=== PATIENT | male | born 1940 | race Caucasian/White ===

== ENCOUNTER 2021-05-31 18:46 | Emergency (ER) | payer MEDICARE, OTHER ==
[2021-05-31] MEDS ORDERED: LIDOCAINE-EPINEPH-TETRACAINE 3 ML SYRINGE TOP STA (19:14)
--- NOTE | 2021-05-31 19:19 | ED Physician Documentation ---
History of Present Illness - Stated complaint Stated Complaint: GLF - Chief complaint Chief Complaint: Trauma Hd/Nk - History obtained from History obtained from: Patient, Family - History of Present Illness Timing: Today Pain level max: 3 Pain level now: 3 - Additonal information Additional information: Patient is an 80-year-old male [place]pped and fell causing a laceration to the left eyebrow. Nothing makes it better or worse. Denies any neck pain. States he has mild back "tightness. No numbness or tingling. Worse with movement, better with rest. He is on aspirin daily. No other blood thinners. Review of Systems Ten Systems: 10 systems reviewed and negative Constitutional: denies: Fever, Chills Ears: denies: Ear pain Nose: denies: Rhinorrhea / runny nose, Congestion GI: denies: Vomiting Skin: denies: Rash Musculoskeletal: reports: Back pain (Patient states that he feels like his back is "tightening up". Mild in nature. No numbness or tingling.). denies: Neck pain Neurologic: denies: Focal weakness, Numbness, Confused, LOC PD PAST MEDICAL HISTORY - Past Medical History Past Medical History: Yes - Present Medications Home Medications: Ambulatory Orders Medication Instructions Recorded Confirmed Aspirin [[place] Aspirin] 81 mg PO DAILY 05/31/21 05/31/21 Atorvastatin [Lipitor] 10 mg PO DAILY 05/31/21 05/31/21 Finasteride [Proscar] 5 mg PO DAILY 05/31/21 05/31/21 Gabapentin [Gralise] 900 mg PO QPM 05/31/21 05/31/21 Montelukast Sodium 5 mg PO DAILY 05/31/21 05/31/21 dilTIAZem HCL [Diltiazem 24Hr ER 240 mg PO DAILY 05/31/21 05/31/21 (Xr)] - Allergies Allergies/Adverse Reactions: Allergies Allergy/AdvReac Type Severity Reaction Status Date / Time tetracycline AdvReac Edema Verified 05/31/21 18:55 PD ED PE NORMAL - Vitals Vital signs reviewed: Yes - General General: Alert and oriented X 3, No acute distress - HEENT HEENT: PERRL, EOMI, Moist mucous membranes, Other (L eyebrow laceration. no sc alp hematomas) - Neck Neck: Supple, no meningeal sign, No bony TTP - Cardiac Cardiac: RRR, Strong equal pulses - Respiratory Respiratory: No respiratory distress, Clear bilaterally - Abdomen Abdomen: Soft, Non tender, Non distended - Back Back: No spinal TTP - Derm Derm: Warm and dry - Extremities Extremities: No edema - Neuro Neuro: Alert and oriented X 3, locomotive engineer 2-12 intact, No motor deficit, No sensory deficit, Normal speech Eye Opening: Spontaneous Motor: Obeys Commands Verbal: Oriented GCS Score: 15 - Psych Psych: Normal mood, Normal affect Results - Vitals Vitals: Vital Signs - 24 hr 05/31/21 05/31/21 05/31/21 18:50 20:11 20:44 Temperature 36.2 C L 36.5 C Heart Rate 75 74 74 Respiratory 18 16 16 Rate Blood Pressure 154/72 H 154/91 H 150/90 H O2 Saturation 97 97 99 Oxygen O2 Source Room air - Rads (name of study) head Ct Radiology: Final report received, EMP read contemporaneously, See rad report (No acute abnormality) cervical spine CT Radiology: Final report received, EMP read contemporaneously, See rad report (Left-sided lymphadenopathy. No acute abnormality) Procedures - Laceration (location) Left eyebrow laceration Length in cm: 3 Wound type: Linear, Into subcut fat Neurovascular status: Sensory intact, Motor intact, Vascular intact Anesthesia: LET, Lidocaine 1% with epi Wound preparation: Irrigated copiously NS, Wound explored, To the base. No: FB identified Skin layer closure: Nylon, Interrupted, Size #-0 - enter number (4), Sutures - enter # (5) Other: Patient tolerated well, No complications, Neurovascular intact, Dressing applied, Tetanus UTD PD MEDICAL DECISION MAKING - ED course Complexity details: reviewed results, re-evaluated patient, considered differential, d/w patient, d/w family ED course: Laceration repaired. Tolerated well. No acute findings on head CT or cervical spine CT. 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 Warnings of infection and instructions on wound care given at bedside. Also counseled on how to minimize scarring. Patient counseled regarding signs and symptoms for which I believe and urgent re-evaluation would be necessary. Patient with good understanding of and agreement to plan and is comfortable going home at this time This document was made in part using voice recognition software. While efforts are made to proofread this document, sound alike and grammatical errors may occur. Departure - Departure Disposition: 01 Home, Self Care Clinical Impression: Lymphadenopathy of head and neck Laceration of eyebrow Qualifiers: Encounter type: initial encounter Laterality: left Qualified Code(s): S01.112A - Laceration without foreign body of left eyelid and periocular area, initial encounter Closed head injury Qualifiers: Encounter type: initial encounter Qualified Code(s): S09.90XA - Unspecified injury of head, initial encounter Condition: Good Instructions: ED Laceration Facial Sutr Tape Follow-Up: DESHAWN AGUILERA MD [Primary Care Provider] - Comments: Follow-up with your doctor in about 7 days for suture removal. You can also return here for suture removal. Return if you worsen. Keep the wounds clean. Your head CT does not show any acute abnormalities tonight. You do have lymphadenopathy on the left side of your neck. Unclear etiology. This should be followed up with your doctor. They will likely want to perform blood work and an ultrasound of this area. IMPRESSION: 1. No acute cervical spine fracture or dislocation. 2. Degenerative disc disease throughout cervical spine as above. 3. Extensive left neck soft tissue lymphadenopathy extending to left supraclavicular region and is of indeterminate etiology, suggest clinical correlation. Discharge Date/Time: 05/31/21 20:46
--- NOTE | 2021-05-31 20:21 | CT Report ---
PROCEDURE: CERVICAL SPINE WO INDICATIONS: fall, neck injury TECHNIQUE: Noncontrast 3 mm thick sections acquired from the skull base to the T4 level. Sagittal and coronal r eformats were then constructed. For radiation dose reduction, the following was used: automated exp osure control, adjustment of mA and/or kV according to patient size. COMPARISON: None. FINDINGS: Image quality: Excellent. Bones: No fractures or dislocations. Osteoarthritic changes are noted involving dens and anterior ar ch of C1. Degenerative endplate changes and decreased intervertebral disc space with bilateral facet hypertrophic changes are noted throughout cervical spine more prominent at C5-6 level causing mild ce ntral canal stenosis, no significant neural foraminal narrowing. Visualized superior ribs are intact. Soft tissues: Prevertebral soft tissues are normal in thickness. No paravertebral hematomas. No ap ical pneumothoraces. Nonspecific prominent left neck soft tissue lymph nodes are seen and measures u p to 2.5 cm in short axis diameter series 2 image 38. IMPRESSION: 1. No acute cervical spine fracture or dislocation. 2. Degenerative disc disease throughout cervical spine as above. 3. Extensive left neck soft tissue lymphadenopathy extending to left supraclavicular region and is of indeterminate etiology, suggest clinical correlation. Reviewed by: Anival Santana MD on 05/31/2021 8:20 PM PDT Approved by: Anival Santana MD on 05/31/2021 8:20 PM PDT Station ID: [id number]
--- NOTE | 2021-05-31 20:23 | CT Report ---
PROCEDURE: HEAD WO INDICATIONS: fall, head injury TECHNIQUE: Noncontrast 4.5 mm thick angled axial sections acquired from the foramen magnum to the vertex. For r adiation dose reduction, the following was used: automated exposure control, adjustment of mA and/or kV according to patient size. COMPARISON: None. FINDINGS: Image quality: Excellent. CSF spaces: Basal cisterns are patent. No extra-axial fluid collections. The ventricles are symmet jigna in size and shape. Brain: No intracranial bleeds or masses. There is cerebral volume loss for age, with resultant vent ricular and sulcal prominence. There are periventricular and deep white matter chronic small vessel ischemic changes. There is intracranial internal carotid artery atherosclerosis. Skull and face: Left frontal scalp hematoma and swelling is seen. Calvarium and visualized facial raquel dinh appear intact, without suspicious lesions. Sinuses: Visualized sinuses and mastoids are clear. IMPRESSION: 1. No CT evidence of acute intracranial pathology. 2. Mild parenchymal volume loss and mild white matter chronic small vessel ischemic changes. 3. Left frontal soft tissue swelling and hematoma. No gross acute skull fracture. Reviewed by: Anival Santana MD on 05/31/2021 8:21 PM PDT Approved by: Anival Santana MD on 05/31/2021 8:21 PM PDT Station ID: [id number]
[2021-05-31] MEDS ORDERED: BACITRACIN ZINC OINT 1 PACKET TOP STA (20:34)
[2021-05-31 20:45] VITALS: BP 150/90
== END 2021-05-31 20:46 | disposition home or self-care (01) ==
LOC: ED 18:46
DX: S01.112A Laceration without foreign body of left eyelid and periocular area, initial encounter (principal); S09.90XA Unspecified injury of head, initial encounter; R59.0 Localized enlarged lymph nodes; W19.XXXA Unspecified fall, initial encounter; Y93.01 Activity, walking, marching and hiking; Y92.832 Beach as the place of occurrence of the external cause
CPT/HCPCS: 12013; 70450; 72125; 99282; 99284; A9270